=== PATIENT | female | born 1950 | race Caucasian/White ===

== ENCOUNTER 2020-01-04 04:14 | Observation (INO) | payer MEDICARE, OTHER ==
[2020-01-04 04:59] LABS: Absolute Neutrophil Ct (ANC) 3.42 (1.4-6.9); BASOPHIL % 0.4 % (0.0-0.4); Basophil (Absolute #) 0.03 (0-0.4); Eosinophil % 4.1 % (0.00-5.0); Eosinophil (Absolute #) 0.31 (0-0.5); Hematocrit 40.2 % (35-47); Hemoglobin 13.1 gm/dl (12.0-16.0); Lymphocyte (Absolute #) 3.26 (1.0-4.6); Lymphocytes % 43.5 % (24.0-44.0); Mean Corpuscular Hgb Concent. 32.6 g/dl (32-36); Mean Platelet Volume 9.8 fl (7.5-11.0); Monocyte (Absolute #) 0.48 (0.0-1.3); Monocytes % 6.4 % (0.0-12.0); Neutrophil % 45.6 % (36.0-66.0); Platelet Count 221 K/mm3 (150-450); Red Blood Count 4.23 M/mm3 (4.1-5.4); Red Cell Distribution Width 12.7 % (11.5-14.0); White Blood Count 7.5 K/mm3 (4.0-10.5)
[2020-01-04 05:12] LABS: ALBUMIN 4.3 g/dL (3.5-5.0); ALKALINE PHOSPHATASE 111 U/L (38-126); ANION GAP 12.5 MEQ/L (5-15); BLOOD UREA NITROGEN 14 mg/dL (7-17); CHLORIDE 108 mmol/L (98-107); Calcium 9.8 mg/dL (8.4-10.2); Carbon Dioxide 24 mmol/L (22-30); Creatinine 1 0.73 mg/dL (0.52-1.04); Glucose 103 mg/dL (74-106); Potassium 3.2 mmol/L (3.5-5.1); SGOT/AST 29 U/L (14-36); SGPT/ALT 20 U/L (0-35); SODIUM 142 mmol/L (137-145); Total Protein 8.1 g/dL (6.3-8.2)
--- NOTE | 2020-01-04 05:33 | ERPHSYRPT ---
- History of Present Illness Time Seen by Provider: 01/04/20 04:30 Source: patient Exam Limitations: no limitations Patient Subjective Stated Complaint: pt got up to go to bathroom and felt dizzy. pt c/o b/p was 99/71 at home, HR 106 and heart felt "fluttery". Triage Nursing Assessment: pt got up to go to bathroom and got dizzy. Pt went back to bed and had spouse check her b/p and HR, which were 99/71 and 106. Pt felt heart was "fluttery". Pt had syncopal episode 2 weeks ago after getting dizzy. Lungs clear, heart tones reg, abd soft with active bs x4 quad. Pt denies any chest pain. Physician History: Patient is a 69-year-old female presents to our ED with complaints of intermittent dizziness that has been going on for approximately 2 weeks. Patient states she had a syncopal episode about 2 weeks ago. Patient followed up with her primary care doctor. Primary care doctor discontinued Lasix. Patient has been off of her Lasix. However today she went to the bathroom and began feeling dizzy. Patient spouse checked her blood pressure and found that her blood pressure was 99/71. Heart rate was 106. Patient described heart flutter. Patient became concerned and presented to our ED. Dizziness is not associated with head motion or head movement. Timing/Duration: today Severity: moderate Character of Deficits: none Baseline/Normal Cognition: alert oriented x 3 Current Cognition: alert oriented x 3, poor alertness Associated Symptoms: No confusion, No weakness, No numbness/tingling in legs/ feet, No ringing in ears, No slurred speech Allergies/Adverse Reactions: No Known Drug Allergies Allergy (Verified 01/04/20 04:32) Home Medications: Verapamil HCl [Verapamil ER] 120 mg PO DAILY 01/04/20 [History] Hx Tetanus, Diphtheria Vaccination/Date Given: No Hx Influenza Vaccination/Date Given: No Hx Pneumococcal Vaccination/Date Given: Yes Immunizations Up to Date: No - Review of Systems Constitutional: No Fever, No Chills Eyes: No Symptoms Ears, Nose, & Throat: No Symptoms Respiratory: No Symptoms, No Cough, No Dyspnea Cardiac: No Symptoms, No Chest Pain, No Edema, No Syncope Abdominal/Gastrointestinal: No Symptoms, No Abdominal Pain, No Nausea, No Vomiting, No Diarrhea Genitourinary Symptoms: No Symptoms, No Dysuria Musculoskeletal: No Symptoms, No Back Pain, No Neck Pain Skin: No Rash Neurological: No Symptoms, No Dizziness, No Focal Weakness, No Sensory Changes Psychological: No Symptoms Endocrine: No Symptoms Hematologic/Lymphatic: No Symptoms Immunological/Allergic: No Symptoms All Other Systems: Reviewed and Negative - Past Medical History Pertinent Past Medical History: Yes Neurological History: No Pertinent History ENT History: No Pertinent History Cardiac History: Hypertension Respiratory History: No Pertinent History Endocrine Medical History: No Pertinent History Musculoskeletal History: Arthritis, Other GI Medical History: No Pertinent History History: No Pertinent History Psycho-Social History: No Pertinent History Female Reproductive Disorders: No Pertinent History Other Medical History: DISC IN BACK PROBLEMS - Past Surgical History Past Surgical History: Yes Neuro Surgical History: No Pertinent History Cardiac: No Pertinent History Respiratory: No Pertinent History Gastrointestinal: No Pertinent History Genitourinary: No Pertinent History Musculoskeletal: Orthopedic Surgery Female Surgical History: No Pertinent History Other Surgical History: partial rt hip replacement. plate in lt wrist - Social History Smoking Status: Never smoker Exposure to second hand smoke: No Drug Use: none Patient Lives Alone: No - Female History Hx Now: No - Nursing Vital Signs Nursing Vital Signs: Initial Vital Signs Temperature 98.0 F 01/04/20 04:19 Pulse Rate 66 01/04/20 04:19 Respiratory Rate 20 01/04/20 04:19 Blood Pressure 174/96 01/04/20 04:19 O2 Sat by Pulse Oximetry 97 01/04/20 04:19 Pain Scale Pain Intensity 0 - Chuy Coma Scale Best Eye Response (Chuy): (4) open spontaneously Best Verbal Response (Chuy): (5) oriented Best Motor Response (Chuy): (6) obeys commands [place] Total: 15 - Physical Exam General Appearance: no apparent distress, alert Eye Exam: bilateral eye: normal inspection, PERRL, EOMI Ears, Nose, Throat Exam: normal ENT inspection, moist mucous membranes Neck Exam: normal inspection, non-tender, supple Respiratory: normal breath sounds, lungs clear, airway intact, No respiratory distress Cardiovascular: regular rate/rhythm, No edema Gastrointestinal: soft, No tenderness, No distention Back Exam: normal inspection Extremity Exam: normal inspection, No pedal edema Mental Status: alert, 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 T wave inversion at 3 and aVF.) - Radiology Exams Chest X-ray Interpretation: Teleradiologist Report (Nonspecific bibasilar streaky opacities are present likely represent subsegmental atelectasis however superimposed airspace consolidation cannot be completely excluded. No definitive acute findings.) - CT Exams Head CT Interpretation: Tele-radiologist Report (No acute intracranial pathology observed.) Ordered Tests: Active Orders 24 hr Category Date Time Status Rigger Supervisor STAT Care 01/04/20 04:38 Active EKG-ER Only STAT Care 01/04/20 04:37 Active IV Insertion STAT Care 01/04/20 04:37 Active Pulse Oximetry (ED) STAT Care 01/04/20 04:37 Active CHEST 1 VIEW (PORTABLE) Stat Exams 01/04/20 04:38 Taken HEAD WITHOUT CONTRAST [CT] Stat Exams 01/04/20 04:39 Taken CBC W DIFF Stat Lab 01/04/20 04:50 Completed CMP Stat Lab 01/04/20 04:50 Completed TROPONIN Q3H Lab 01/04/20 04:50 Received TROPONIN Q3H Lab 01/04/20 07:45 Ordered TROPONIN Q3H Lab 01/04/20 10:45 Ordered TROPONIN Q3H Lab 01/04/20 13:45 Ordered TROPONIN Q3H Lab 01/04/20 16:45 Ordered Lab/Rad Data: Laboratory Result Diagrams 01/04/20 04:50 01/04/20 04:50 Laboratory Results 01/04/20 01/04/20 Range/Units 04:50 04:50 WBC 7.5 (4.0-10.5) K/mm3 RBC 4.23 (4.1-5.4) M/mm3 Hgb 13.1 (12.0-16.0) gm/dl Hct 40.2 (35-47) % MCV 95.0 (78-100) fl MCH 31.0 (26-32) pg MCHC 32.6 (32-36) g/dl RDW 12.7 (11.5-14.0) % Plt Count 221 (150-450) K/mm3 MPV 9.8 (7.5-11.0) fl Gran % 45.6 (36.0-66.0) % Eos # (Auto) 0.31 (0-0.5) Absolute Lymphs (auto) 3.26 (1.0-4.6) Absolute Monos (auto) 0.48 (0.0-1.3) Lymphocytes % 43.5 (24.0-44.0) % Monocytes % 6.4 (0.0-12.0) % Eosinophils % 4.1 (0.00-5.0) % Basophils % 0.4 (0.0-0.4) % Absolute Granulocytes 3.42 (1.4-6.9) Basophils # 0.03 (0-0.4) Sodium 142 (137-145) mmol/L Potassium 3.2 L (3.5-5.1) mmol/L Chloride 108 H (98-107) mmol/L Carbon Dioxide 24 (22-30) mmol/L Anion Gap 12.5 (5-15) MEQ/L BUN 14 (7-17) mg/dL Creatinine 0.73 (0.52-1.04) mg/dL Estimated GFR > 60.0 ML/MIN Glucose 103 (74-106) mg/dL Calcium 9.8 (8.4-10.2) mg/dL Total Bilirubin 0.60 (0.2-1.3) mg/dL AST 29 (14-36) U/L ALT 20 (0-35) U/L Alkaline Phosphatase 111 (38-126) U/L Serum Total Protein 8.1 (6.3-8.2) g/dL Albumin 4.3 (3.5-5.0) g/dL - Progress Progress: improved Progress Note: 01/04/20 06:09 Patient reassessed. She feels well. Work-up reveals hypokalemia. Potassium replaced. EKG shows ST segment depression in V5 V6. 3 and aVF show T wave inversions. Patient has had 2 syncopal or near syncopal episodes in the past 2 weeks. Given her age and ongoing symptomology coupled with abnormal EKG we will admit patient for further evaluation and treatment. Plan of care discussed with patient. She agrees to admission to [facility] for further evaluation and treatment. Case discussed with Dr. Adam who accepts admission to observation. 01/04/20 06:13 Discussed with : Melissa Will see patient in: hospital (observation) Counseled pt/family regarding: lab results, diagnosis, rad results - Departure Departure Disposition: In-patient Admission Clinical Impression: Dizziness, Syncope and collapse, Hypokalemia, Abnormal EKG Condition: Stable Critical Care Time: No Referrals: GLADYS ADAM MD [Primary Care Provider] - Additional Instructions: Admission Note: The patient, MAICOL DICKSON, 69 y/o, F admitted by , was given written information regarding hospital policies, unit procedures and contact persons. Patient was admitted after showing signs of DIZZY W /abnormal EKG
[2020-01-04] MEDS ORDERED: Klor Con 10 MEQ PO ONE ×2 (05:52→05:59)
--- NOTE | 2020-01-04 09:20 | XRAY ---
Indication: Dizziness and congestion. Comparison: April 04, 2013. Portable chest remains negative for focal infiltrate, consolidation, or large effusion. Heart is now borderline enlarged. Vascularity normal. Bony thorax intact. Impression: Borderline cardiomegaly. Negative for acute pneumonic process or CHF. Comment: Preliminary interpretation was made by C. No critical discrepancy.
--- NOTE | 2020-01-04 09:22 | XRAY ---
Indication: Dizziness. Multiple contiguous axial images obtained through the head without contrast. Comparison: None Normal appearing brain parenchyma, ventricles, and bony calvarium. Tiny sphenoid sinus fluid leveling and minimal right maxillary sinus mucosal thickening. Remaining visualized paranasal sinuses and mastoid air cells are clear. Impression: Minimal paranasal sinus disease. Remaining CT head without contrast exam is normal. Comment: Preliminary interpretation was made by [facility]. No critical discrepancy.
--- NOTE | 2020-01-04 12:30 | PCM.HP ---
History of Present Illness - Chief Complaint Chief Complaint: dizziness off and on for 2 weeks History of Present Illness: Patient is a 69-year-old female presents to our ED with complaints of intermittent dizziness that has been going on for approximately 2 weeks. Patient states she had a syncopal episode about 2 weeks ago. Patient followed up with her primary care doctor. Primary care doctor discontinued Lasix. Patient has been off of her Lasix. However today she went to the bathroom and began feeling dizzy. Patient spouse checked her blood pressure and found that her blood pressure was 99/71. Heart rate was 106. Patient described heart flutter. Patient became concerned and presented to our ED. Dizziness is not associated with head motion or head movement. - Review of Systems Constitutional: No Fever, No Chills Eyes: No Symptoms Ears, Nose, & Throat: No Symptoms Respiratory: No Cough, No Short Of Breath Cardiac: No Chest Pain, No Edema, No Syncope Abdominal/Gastrointestinal: No Abdominal Pain, No Nausea, No Vomiting, No Diarrhea Genitourinary Symptoms: No Dysuria Musculoskeletal: No Back Pain, No Neck Pain Skin: No Rash Neurological: No Dizziness, No Focal Weakness, No Sensory Changes Psychological: No Symptoms Endocrine: No Symptoms Hematologic/Lymphatic: No Symptoms Immunological/Allergic: No Symptoms Medications & Allergies Home Medications: Home Medication List Aspirin EC 81 mg [Ecotrin 81 mg] 81 mg PO DAILY 01/04/20 [History Confirmed 01/04/20] Ferrous Sulfate 325 mg PO DAILY 01/04/20 [History Confirmed 01/04/20] Vits W-Ca,Fe,FA(<1Mg) [] 1 tab PO DAILY 01/04/20 [History Confirmed 01/04/20] Verapamil HCl [Verapamil ER] 120 mg PO DAILY 01/04/20 [History Confirmed ] Allergies/Adverse Reactions: Allergies Allergy/AdvReac Type Severity Reaction Status Date / Time No Known Drug Allergies Allergy Verified 01/04/20 04:32 - Past Medical History Past Medical History: Yes Neurological History: No Pertinent History ENT History: No Pertinent History Cardiac History: Hypertension Respiratory History: No Pertinent History Endocrine Medical History: No Pertinent History Musculoskelatal History: Arthritis, Other GI Medical History: No Pertinent History History: No Pertinent History Pyscho-Social History: No Pertinent History Reproductive Disorders: No Pertinent History Comment: DISC IN BACK PROBLEMS - Female History Are you now?: No - Past Surgical History Past Surgical History: Yes Neuro Surgical History: No Pertinent History Cardiac History: No Pertinent History Respiratory Surgery: No Pertinent History GI Surgical History: No Pertinent History Genitourinary Surgical Hx: No Pertinent History Musculskeletal Surgical Hx: Orthopedic Surgery Female Surgical History: No Pertinent History Other Surgical History: partial rt hip replacement. plate in lt wrist - Social History Smoking Status: Never smoker Exposure to second hand smoke: No Alcohol: None Drug Use: none - Physical Exam Vital Signs: Vital Signs - 24 hr Temp Pulse Resp BP Pulse Ox 01/04/20 11:33 98.8 F 67 18 128/56 96 01/04/20 08:07 97.8 F 71 176/86 98 01/04/20 06:41 98 01/04/20 06:23 97.8 F 71 20 176/86 96 01/04/20 06:14 100 01/04/20 05:58 73 10 L 152/85 95 01/04/20 05:05 83 13 152/85 94 L 01/04/20 04:40 100 01/04/20 04:19 98.0 F 66 20 174/96 97 General Appearance: no apparent distress, alert Neurologic Exam: alert, oriented x 3, cooperative, normal mood/affect, nml cerebellar function, nml station & gait, sensation nml, No motor deficits Eye Exam: PERRL/EOMI, eyes nml inspection Ears, Nose, Throat Exam: normal ENT inspection, TMs normal, pharynx normal, moist mucous membranes Neck Exam: normal inspection, non-tender, supple, full range of motion Respiratory Exam: normal breath sounds, lungs clear, No respiratory distress Cardiovascular Exam: regular rate/rhythm, normal heart sounds, normal peripheral pulses Gastrointestinal/Abdomen Exam: soft, normal bowel sounds, No tenderness, No mass Back Exam: normal inspection, normal range of motion, No CVA tenderness, No vertebral tenderness Extremity Exam: normal inspection, normal range of motion, pelvis stable Skin Exam: normal color, warm, dry, No rash Lymphatic Exam: No adenopathy Results - Labs Lab/Micro Results: Lab Results-Last 24 Hours 01/04/20 01/04/20 01/04/20 Range/Units 04:50 04:50 04:50 WBC 7.5 (4.0-10.5) K/mm3 RBC 4.23 (4.1-5.4) M/mm3 Hgb 13.1 (12.0-16.0) gm/dl Hct 40.2 (35-47) % MCV 95.0 (78-100) fl MCH 31.0 (26-32) pg MCHC 32.6 (32-36) g/dl RDW 12.7 (11.5-14.0) % Plt Count 221 (150-450) K/mm3 MPV 9.8 (7.5-11.0) fl Gran % 45.6 (36.0-66.0) % Eos # (Auto) 0.31 (0-0.5) Absolute Lymphs (auto) 3.26 (1.0-4.6) Absolute Monos (auto) 0.48 (0.0-1.3) Lymphocytes % 43.5 (24.0-44.0) % Monocytes % 6.4 (0.0-12.0) % Eosinophils % 4.1 (0.00-5.0) % Basophils % 0.4 (0.0-0.4) % Absolute Granulocytes 3.42 (1.4-6.9) Basophils # 0.03 (0-0.4) Sodium 142 (137-145) mmol/L Potassium 3.2 L (3.5-5.1) mmol/L Chloride 108 H (98-107) mmol/L Carbon Dioxide 24 (22-30) mmol/L Anion Gap 12.5 (5-15) MEQ/L BUN 14 (7-17) mg/dL Creatinine 0.73 (0.52-1.04) mg/dL Estimated GFR > 60.0 ML/MIN Glucose 103 (74-106) mg/dL Calcium 9.8 (8.4-10.2) mg/dL Total Bilirubin 0.60 (0.2-1.3) mg/dL AST 29 (14-36) U/L ALT 20 (0-35) U/L Alkaline Phosphatase 111 (38-126) U/L Troponin I < 0.012 (0.000-0.034) ng/mL Serum Total Protein 8.1 (6.3-8.2) g/dL Albumin 4.3 (3.5-5.0) g/dL 01/04/20 01/04/20 Range/Units 08:05 11:00 WBC (4.0-10.5) K/mm3 RBC (4.1-5.4) M/mm3 Hgb (12.0-16.0) gm/dl Hct (35-47) % MCV (78-100) fl MCH (26-32) pg MCHC (32-36) g/dl RDW (11.5-14.0) % Plt Count (150-450) K/mm3 MPV (7.5-11.0) fl Gran % (36.0-66.0) % Eos # (Auto) (0-0.5) Absolute Lymphs (auto) (1.0-4.6) Absolute Monos (auto) (0.0-1.3) Lymphocytes % (24.0-44.0) % Monocytes % (0.0-12.0) % Eosinophils % (0.00-5.0) % Basophils % (0.0-0.4) % Absolute Granulocytes (1.4-6.9) Basophils # (0-0.4) Sodium (137-145) mmol/L Potassium (3.5-5.1) mmol/L Chloride (98-107) mmol/L Carbon Dioxide (22-30) mmol/L Anion Gap (5-15) MEQ/L BUN (7-17) mg/dL Creatinine (0.52-1.04) mg/dL Estimated GFR ML/MIN Glucose (74-106) mg/dL Calcium (8.4-10.2) mg/dL Total Bilirubin (0.2-1.3) mg/dL AST (14-36) U/L ALT (0-35) U/L Alkaline Phosphatase (38-126) U/L Troponin I < 0.012 < 0.012 (0.000-0.034) ng/mL Serum Total Protein (6.3-8.2) g/dL Albumin (3.5-5.0) g/dL - Radiology Impressions Radiology Exams & Impressions: Radiology Procedures Category Date Time Status CHEST 1 VIEW (PORTABLE) Stat Exams 01/04/20 04:38 Completed HEAD WITHOUT CONTRAST [CT] Stat Exams 01/04/20 04:39 Completed Assessment/Plan (1) Syncope and collapse Current Visit: Yes Status: Acute Assessment & Plan: Last Vital Signs Temp 98.8 F 01/04/20 11:33 Pulse 67 01/04/20 11:33 Resp 18 01/04/20 11:33 BP 128/56 01/04/20 11:33 Pulse Ox 96 01/04/20 11:33 Allergies No Known Drug Allergies Allergy (Verified 01/04/20 04:32) Intake & Output 01/04/20 01/05/20 11:59 11:59 Intake Total 720 480 Balance 720 480 Weight 84.096 kg Lab Tests 01/04/20 01/04/20 01/04/20 04:50 04:50 04:50 WBC 7.5 RBC 4.23 Hgb 13.1 Hct 40.2 MCV 95.0 MCH 31.0 MCHC 32.6 RDW 12.7 Plt Count 221 MPV 9.8 Gran % 45.6 Eos # (Auto) 0.31 Absolute Lymphs (auto) 3.26 Absolute Monos (auto) 0.48 Lymphocytes % 43.5 Monocytes % 6.4 Eosinophils % 4.1 Basophils % 0.4 Absolute Granulocytes 3.42 Basophils # 0.03 Sodium 142 Potassium 3.2 L Chloride 108 H Carbon Dioxide 24 Anion Gap 12.5 BUN 14 Creatinine 0.73 Estimated GFR > 60.0 Glucose 103 Calcium 9.8 Total Bilirubin 0.60 AST 29 ALT 20 Alkaline Phosphatase 111 Troponin I < 0.012 Serum Total Protein 8.1 Albumin 4.3 01/04/20 01/04/20 08:05 11:00 WBC RBC Hgb Hct MCV MCH MCHC RDW Plt Count MPV Gran % Eos # (Auto) Absolute Lymphs (auto) Absolute Monos (auto) Lymphocytes % Monocytes % Eosinophils % Basophils % Absolute Granulocytes Basophils # Sodium Potassium Chloride Carbon Dioxide Anion Gap BUN Creatinine Estimated GFR Glucose Calcium Total Bilirubin AST ALT Alkaline Phosphatase Troponin I < 0.012 < 0.012 Serum Total Protein Albumin Code(s): R55 - SYNCOPE AND COLLAPSE (2) Dizziness Current Visit: Yes Status: Acute Code(s): R42 - DIZZINESS AND GIDDINESS (3) Abnormal EKG Current Visit: Yes Status: Acute Code(s): R94.31 - ABNORMAL ELECTROCARDIOGRAM [ECG] [EKG]
[2020-01-04] MEDS ORDERED: ISOPTIN S.R. 240 MG PO SCH (14:00)
[2020-01-04] MEDS ORDERED: THERAGRAN MULTIVITAMIN PO SCH (14:00)
[2020-01-04] MEDS ORDERED: ECOTRIN 81 MG PO SCH (14:00)
[2020-01-04] MEDS ORDERED: FEOSOL 325 MG PO SCH (14:00)
[2020-01-04 16:39] VITALS: BP 139/66; PULSE 70; O2SAT 97
--- NOTE | 2020-01-05 07:54 | CONS ---
CONSULT DATE: 01/04/2020 BRIEF HISTORY: This is a 69 year-old female who was seen for dizzy spells and syncope. About two weeks ago when she was on her way to the bathroom, she felt dizzy and passed out. This only lasted a few seconds and she regained consciousness she was cognizant of her environment. There was no significant injury sustained. She was doing well until yesterday when she got up for the bathroom. She felt dizzy and had to go back to her bed. Her blood pressure was in the upper 90's systolic with a heart rate of 106. She felt her heart fluttering. PAST MEDICAL HISTORY: The patient has a history of mitral valve prolapse. She recently lost her grandson from a motor vehicle accident. She denies any chest pains. No history of paroxysmal nocturnal dyspnea. No orthopnea. No peripheral edema. She has had some intermittent palpitations. She has never had myocardial infarction or heart failure. CARDIAC RISK FACTORS: Negative for diabetes. Positive for hypertension. She does not smoke. No known hyperlipidemia. FAMILY HISTORY: Negative for premature coronary artery disease. Mother was diagnosed to have some problem with arrhythmia while her father had congestive heart failure. CURRENT MEDICATIONS: Aspirin, ferrous sulfate, Verapamil, multivitamins. REVIEW OF SYSTEMS: CYLINDER GRINDER: There is no history of stroke, no seizures. She has intermittent headaches. No visual disturbance. RESPIRATORY: No chronic cough. No hemoptysis. No history of pneumonia. GI: Negative history for heartburn, reflux. No nausea or vomiting. She is chronically constipated. : Negative for dysuria or hematuria. No flank pains. PERIPHERAL VASCULAR: No history of DVT or claudication. 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 CONSTITUTIONAL: No significant weight gain or weight loss. No febrile episodes. No generalized weakness. HEMATOLOGY: She has chronic anemia which appears to be secondary to iron deficiency. ENDOCRINE: No thyroid disorder. PAST SURGICAL HISTORY: Right hip surgery. Right wrist surgery. SOCIAL HISTORY: She is . 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 She has no significant alcohol intake. PHYSICAL EXAMINATION: Heart rate is about 70, respirations about 14, blood pressure 139/66. GENERAL: The patient is an elderly woman who is alert, oriented who is not in any form of distress, conversant with normal mental status. HEENT: Nonicteric sclera. Pinkish conjunctivae. Pupils are equal. NECK: No significant JVD. No carotid bruit. Thyroid is not enlarged. CHEST: The breath sounds are clear bilaterally. There are no adventitious sounds. CARDIAC: Heart tones are normal. The rhythm is regular. There is no audible gallop or rub. There is a soft apical systolic murmur. ABDOMEN: Soft with normal bowel sounds. No bruit. No tenderness or guarding. EXTREMITIES: No significant edema. Palpable distal pulses. LAB DATA AND DIAGNOSTIC TESTS: The EKG showed sinus rhythm with nonspecific ST-T displacement. The troponin I is less than 0.012. CBC showed hemoglobin 13.3, PLT 221,000. CT of the head was unremarkable. Chest x-ray was also unremarkable. IMPRESSION: In essence the patient has history of syncope and also dizzy spells with a background of palpitations a Holter monitor would be warranted. In addition, an echocardiogram will be obtained to assess the left ventricular systolic function. Will also perform a screening calcium score as she has some cardiac risk factors. Meanwhile continue with the current medical regimen. I will follow up with you.
[2020-01-05] MEDS ORDERED: NON-FORMULARY ITEM (Prenatal Vits W-Ca,Fe,Fa(<1mg) [Prenatal] 1 TAB) PO SCH (10:00)
[2020-01-05] MEDS ORDERED: NON-FORMULARY ITEM (Verapamil Hcl [Verapamil Er] 120 MG) PO SCH (10:00)
== END 2020-01-04 17:50 | disposition home or self-care (01) ==
LOC: ED 04:14 → MED SURG 06:21
PROVIDERS: ADMIT General Practice; ATTEND General Practice
DX: R55 Syncope and collapse (principal); R42 Dizziness and giddiness; I10 Essential (primary) hypertension; R94.31 Abnormal electrocardiogram [ECG] [EKG]; Z79.899 Other long term (current) drug therapy
CPT/HCPCS: 36000; 36415; 70450; 71045; 80053; 84484; 85025; 93005; 93041; 94760; 94762; 99285; A9270-GY; G0378

== ENCOUNTER 2020-11-01 16:45 | Inpatient (IN) | payer MEDICARE, OTHER ==
--- NOTE | 2020-11-01 17:47 | ERPHSYRPT ---
- History of Present Illness Patient Subjective Stated Complaint: Patient presents to ER as a Covid- Positive patient. She states she was tested on 10/29/20 and learned on 11/01/20 she was positive. Her chief compliant is bodyaches and low-graade fever. States she has been unable to eat due to no apetite. SHe does report a haeadache and diarrhea. Triage Nursing Assessment: Patient pink, warm, dry. Lung sounds clear and equal bilaterally. Patient alert and oriented x3. Mouth moist. heart tones wnl. Timing/Duration: day(s), worse Activities at Onset: none Quality: cramping, throbbing Abdominal Pain Onset Location: generalized abdomen Pain Radiation: no radiation Severity of Pain-Max: moderate Severity of Pain-Current: moderate Modifying Factors: Improves With: nothing Associated Symptoms: back, diarrhea, nausea, vomiting Previous symptoms: no prior history Hx Tetanus, Diphtheria Vaccination/Date Given: No Hx Influenza Vaccination/Date Given: No Hx Pneumococcal Vaccination/Date Given: No Immunizations Up to Date: Yes <CECY VALLES - Last Filed: 11/01/20 19:23> <GLADYS ADAM - Last Filed: 11/01/20 20:43> - History of Present Illness Time Seen by Provider: 11/01/20 17:45 Physician History: Is a 70-year-old female who was diagnosed with Covid who presents with gen eralized body aches weakness and generally not feeling well. Has had only a low-grade fever she denies much in the way of shortness of breath or cough. She does have some nausea vomiting and diarrhea (CECY VALLES) Allergies/Adverse Reactions: No Known Drug Allergies Allergy (Verified 01/04/20 04:32) Home Medications: Aspirin EC 81 mg [Ecotrin 81 mg] 81 mg PO DAILY 01/04/20 [History] Ferrous Sulfate 325 mg PO DAILY 01/04/20 [History] Vits W-Ca,Fe,FA(<1Mg) [] 1 tab PO DAILY 01/04/20 [History] Verapamil HCl [Verapamil ER] 120 mg PO DAILY 01/04/20 [History] Travel Risk - International Travel Have you traveled outside of the country in past 3 weeks: No - Coronavirus Screening Are you exhibiting any of the following symptoms?: Yes Symptoms: Fever, Vomiting/Diarrhea, Headaches/Body Aches/Fatigue Close contact with a COVID-19 positive Pt in past 14-21 Days: No <CECY VALLES - Last Filed: 11/01/20 19:23> - Past Medical History Pertinent Past Medical History: Yes Neurological History: No Pertinent History ENT History: No Pertinent History Cardiac History: Other Respiratory History: No Pertinent History Endocrine Medical History: No Pertinent History Musculoskeletal History: Osteoarthritis GI Medical History: No Pertinent History History: No Pertinent History Psycho-Social History: No Pertinent History Female Reproductive Disorders: No Pertinent History Other Medical History: DISC IN BACK PROBLEMS - Past Surgical History Past Surgical History: Yes Neuro Surgical History: No Pertinent History Cardiac: No Pertinent History Respiratory: No Pertinent History Gastrointestinal: No Pertinent History Genitourinary: No Pertinent History Musculoskeletal: Joint Replacement Female Surgical History: No Pertinent History Other Surgical History: wrist surgery - Social History Smoking Status: Never smoker Exposure to second hand smoke: No Drug Use: none Patient Lives Alone: No - Female History Hx Now: No <CECY VALLES - Last Filed: 11/01/20 19:23> - Physical Exam General Appearance: no apparent distress, alert Eye Exam: PERRL/EOMI, eyes nml inspection Ears, Nose, Throat Exam: normal ENT inspection, pharynx normal, moist mucous membranes Neck Exam: normal inspection, non-tender, supple, full range of motion Respiratory Exam: normal breath sounds, lungs clear, No respiratory distress Cardiovascular Exam: regular rate/rhythm, normal heart sounds Gastrointestinal/Abdomen Exam: soft, No tenderness, No mass Back Exam: normal inspection, normal range of motion, No CVA tenderness, No vertebral tenderness Extremity Exam: normal inspection, normal range of motion, pelvis stable Neurologic Exam: alert, oriented x 3, cooperative, normal mood/affect, nml cerebellar function, sensation nml, No motor deficits Skin Exam: normal color, warm, dry SpO2: 96 <CECY VALLES - Last Filed: 11/01/20 19:23> - Nursing Vital Signs Nursing Vital Signs: Initial Vital Signs Temperature 100.4 F 11/01/20 17:20 Pulse Rate 82 11/01/20 17:20 Respiratory Rate 18 11/01/20 17:20 Blood Pressure 164/79 11/01/20 17:20 O2 Sat by Pulse Oximetry 96 11/01/20 17:20 Pain Scale Pain Intensity 0 - Course Nursing assessment & vital signs reviewed: Yes <REENACECY - Last Filed: 11/01/20 19:23> - Radiology Exams Chest X-ray Interpretation: Reviewed by me <GLADYS ADAM - Last Filed: 11/01/20 20:43> Ordered Tests: Active Orders 24 hr Category Date Time Status Room Maid STAT Care 11/01/20 17:39 Active EKG-ER Only STAT Care 11/01/20 17:39 Active Isolation, Initiate & Maintain STAT Care 11/01/20 19:34 Active Pulse Oximetry (ED) STAT Care 11/01/20 17:39 Active Saline Lock STAT Care 11/01/20 17:39 Active CHEST 1 VIEW (PORTABLE) Stat Exams 11/01/20 19:32 Taken CBC W DIFF Stat Lab 11/01/20 19:50 Completed CMP Stat Lab 11/01/20 19:50 Completed D-DIMER QUANTITATIVE Stat Lab 11/01/20 19:50 Completed Manual Differential NC Stat Lab 11/01/20 19:50 Completed TROPONIN Stat Lab 11/01/20 19:50 Completed Transfer Order Routine Transfer 11/01/20 Ordered Medication Summary Discontinued Medications Generic Name Dose Route Start Last Admin Trade Name Freq PRN Reason Stop Dose Admin Acetaminophen 1,000 mg 11/01/20 19:15 11/01/20 19:18 Tylenol Extra Strength 500 Mg PO 11/01/20 19:16 1,000 mg Q4H PRN STA Administration Acetaminophen Confirm 11/01/20 19:17 Tylenol Extra Strength 500 Mg Administered 11/01/20 19:18 Dose 1,000 mg .ROUTE .STK-MED ONE Sodium Chloride 1,000 mls @ 999 mls/hr 11/01/20 19:13 11/01/20 19:18 Sodium Chloride 0.9% 1000 Ml IV 11/01/20 20:13 999 mls/hr .Q1H1M STA Administration Sodium Chloride Confirm 11/01/20 19:17 Sodium Chloride 0.9% 1000 Ml Administered 11/01/20 19:18 Dose 1,000 mls @ ud .ROUTE .STK-MED ONE Lab/Rad Data: Laboratory Result Diagrams 11/01/20 19:50 11/01/20 19:50 Laboratory Results 11/01/20 11/01/20 11/01/20 Range/Units 19:50 19:50 19:50 WBC 5.9 (4.0-10.5) K/mm3 RBC 3.77 L (4.1-5.4) M/mm3 Hgb 11.6 L (12.0-16.0) gm/dl Hct 35.5 (35-47) % MCV 94.2 (78-100) fl MCH 30.8 (26-32) pg MCHC 32.7 (32-36) g/dl RDW 12.4 (11.5-14.0) % Plt Count 161 (150-450) K/mm3 MPV 10.5 (7.5-11.0) fl D-Dimer 971 H* (215-500) ng/mL Sodium 130 L (137-145) mmol/L Potassium 3.6 (3.5-5.1) mmol/L Chloride 99 (98-107) mmol/L Carbon Dioxide 23 (22-30) mmol/L Anion Gap 11.3 (5-15) MEQ/L BUN 12 (7-17) mg/dL Creatinine 0.69 (0.52-1.04) mg/dL Estimated GFR > 60.0 ML/MIN Glucose 100 (74-106) mg/dL Calcium 8.4 (8.4-10.2) mg/dL Total Bilirubin 0.50 (0.2-1.3) mg/dL AST 36 (14-36) U/L ALT 20 (0-35) U/L Alkaline Phosphatase 80 (38-126) U/L Troponin I < 0.012 (0.000-0.034) ng/mL Serum Total Protein 6.8 (6.3-8.2) g/dL Albumin 3.5 (3.5-5.0) g/dL Slides for Path Review Cancelled - Progress Progress: unchanged <CECY VALLES - Last Filed: 11/01/20 19:23> - Progress Counseled pt/family regarding: lab results, diagnosis, need for follow-up, rad results <GLADYS ADAM - Last Filed: 11/01/20 20:43> <CECY VALLES - Last Filed: 11/01/20 19:23> - Departure Departure Disposition: Observation Critical Care Time: Yes Critical Care Time(excluding separately billable procedures): Critical 30-74 mins <GLADYS ADAM - Last Filed: 11/01/20 20:43> - Departure Clinical Impression: Pneumonia due to 2019 novel coronavirus Condition: Fair Referrals: GLADYS ADAM MD [Primary Care Provider] - Instructions: Pneumonia, Adult (DC)
[2020-11-01] MEDS ORDERED: Sodium Chloride 0.9% 1000 ML 1,000 ML IV STA (19:13)
[2020-11-01] MEDS ORDERED: TYLENOL EXTRA STRENGTH 500 MG PO STA (19:15)
[2020-11-01] MEDS ORDERED: TYLENOL EXTRA STRENGTH 500 MG ONE (19:17)
[2020-11-01] MEDS ORDERED: Sodium Chloride 0.9% 1000 ML 1,000 ML ONE (19:17)
[2020-11-01 20:23] LABS: ALBUMIN 3.5 g/dL (3.5-5.0); ALKALINE PHOSPHATASE 80 U/L (38-126); ANION GAP 11.3 MEQ/L (5-15); BLOOD UREA NITROGEN 12 mg/dL (7-17); CHLORIDE 99 mmol/L (98-107); Calcium 8.4 mg/dL (8.4-10.2); Carbon Dioxide 23 mmol/L (22-30); Creatinine 1 0.69 mg/dL (0.52-1.04); EST GLOMERULAR FILTRATION RATE > 60.0 ML/MIN; Glucose 100 mg/dL (74-106); Hematocrit 35.5 % (35-47); Hemoglobin 11.6 gm/dl (12.0-16.0); Mean Cell Volume 94.2 fl (78-100); Mean Corpuscular Hemoglobin 30.8 pg (26-32); Mean Corpuscular Hgb Concent. 32.7 g/dl (32-36); Mean Platelet Volume 10.5 fl (7.5-11.0); Platelet Count 161 K/mm3 (150-450); Potassium 3.6 mmol/L (3.5-5.1); Red Blood Count 3.77 M/mm3 (4.1-5.4); Red Cell Distribution Width 12.4 % (11.5-14.0); SGOT/AST 36 U/L (14-36); SGPT/ALT 20 U/L (0-35); SODIUM 130 mmol/L (137-145); TROPONIN < 0.012 ng/mL (0.000-0.034); Total Protein 6.8 g/dL (6.3-8.2); White Blood Count 5.9 K/mm3 (4.0-10.5)
[2020-11-01 21:01] LABS: BAND 5 % (0.0-2.0); Lymphocytes 8 % (24-44); Metamyelocyte 1 %; Monocyte 2 % (0.0-12.0); Neutrophils 84 % (36.0-66.0); Total Cells Counted 100
[2020-11-01 21:02] LABS: Platelet Estimate NORMAL (NORMAL)
[2020-11-01] MEDS ORDERED: MORPHINE SULFATE 4 MG INJ IV PRN (21:17)
[2020-11-01] MEDS: Lactated Ringers 1,000 ML IV SCH (23:09)
[2020-11-01] MEDS: Pepcid 20 MG VIAL IV SCH (23:09)
[2020-11-02] MEDS: TYLENOL EXTRA STRENGTH 500 MG PO PRN ×3 (00:54→18:34)
[2020-11-02 06:13] LABS: Hematocrit 35.8 % (35-47); Hemoglobin 11.4 gm/dl (12.0-16.0); Mean Cell Volume 94.5 fl (78-100); Mean Corpuscular Hemoglobin 30.1 pg (26-32); Mean Corpuscular Hgb Concent. 31.8 g/dl (32-36); Platelet Count 156 K/mm3 (150-450); Red Blood Count 3.79 M/mm3 (4.1-5.4); Red Cell Distribution Width 12.5 % (11.5-14.0); White Blood Count 5.6 K/mm3 (4.0-10.5)
[2020-11-02 06:33] LABS: ANION GAP 9.8 MEQ/L (5-15); BLOOD UREA NITROGEN 10 mg/dL (7-17); CHLORIDE 101 mmol/L (98-107); Calcium 8.5 mg/dL (8.4-10.2); Carbon Dioxide 26 mmol/L (22-30); Creatinine 1 0.63 mg/dL (0.52-1.04); EST GLOMERULAR FILTRATION RATE > 60.0 ML/MIN; Glucose 95 mg/dL (74-106); Potassium 3.3 mmol/L (3.5-5.1); SODIUM 133 mmol/L (137-145)
--- NOTE | 2020-11-02 08:54 | XRAY ---
Indication: Follow-up Covid 19. Comparison: One day earlier. Portable chest demonstrates stable bilateral patchy airspace disease again without consolidation/effusion. Heart and mediastinal structures within normal limits. No new cardiopulmonary abnormalities.
--- NOTE | 2020-11-02 08:54 | XRAY ---
Indication: Weakness and cough. Positive Covid 19. Comparison: January 04, 2020. Portable chest demonstrates new subtle patchy airspace disease bilaterally without consolidation/large effusion. Stable borderline cardiomegaly. Bony thorax intact again with mild osteopenia and degenerative changes.
[2020-11-02] MEDS: Pepcid 20 MG VIAL IV SCH ×2 (09:45→21:49)
[2020-11-02] MEDS: ENOXAPARIN SODIUM SQ SCH (09:45)
[2020-11-02] MEDS ORDERED: NON-FORMULARY ITEM (Verapamil Hcl [Verapamil Er] 120 MG) PO SCH (10:00)
[2020-11-02] MEDS ORDERED: ISOPTIN S.R. 240 MG PO SCH (10:00)
[2020-11-02] MEDS ORDERED: NON-FORMULARY ITEM (Prenatal Vits W-Ca,Fe,Fa(<1mg) [Prenatal] 1 TAB) PO SCH (10:00)
[2020-11-02 10:29] LABS: BAND 1 % (0.0-2.0); Eosinophil 1 % (0.00-3.0); Lymphocytes 19 % (24-44); Monocyte 5 % (0.0-12.0); Neutrophils 74 % (36.0-66.0); Platelet Estimate NORMAL (NORMAL); Total Cells Counted 100
[2020-11-02] MEDS: ECOTRIN 81 MG PO SCH (10:53)
[2020-11-02] MEDS: FEOSOL 325 MG PO SCH (10:54)
[2020-11-02] MEDS: THERAGRAN MULTIVITAMIN PO SCH (10:54)
[2020-11-02] MEDS: Zofran 4 MG/2 ML VIAL IV PRN (16:01)
[2020-11-02] MEDS: Lactated Ringers 1,000 ML IV SCH (17:19)
[2020-11-03] MEDS: Lactated Ringers 1,000 ML IV SCH ×3 (01:06→21:44)
[2020-11-03] MEDS ORDERED: Cardizem IV 50 MG/10 ML IV ONE (03:45)
[2020-11-03] MEDS ORDERED: CARDIZEM DRIP 100 MG/100 ML D5W 100 ML IV PRN (03:46)
[2020-11-03] MEDS ORDERED: Sodium Chloride 0.9% 1000 ML 1,000 ML ONE (03:54)
[2020-11-03 06:56] LABS: Hematocrit 35.7 % (35-47); Hemoglobin 11.6 gm/dl (12.0-16.0); Mean Cell Volume 94.9 fl (78-100); Mean Corpuscular Hemoglobin 30.9 pg (26-32); Mean Corpuscular Hgb Concent. 32.5 g/dl (32-36); Mean Platelet Volume 10.5 fl (7.5-11.0); Platelet Count 195 K/mm3 (150-450); Red Blood Count 3.76 M/mm3 (4.1-5.4); Red Cell Distribution Width 12.5 % (11.5-14.0); White Blood Count 6.9 K/mm3 (4.0-10.5)
[2020-11-03 07:29] LABS: ANION GAP 13.6 MEQ/L (5-15); BLOOD UREA NITROGEN 8 mg/dL (7-17); CHLORIDE 106 mmol/L (98-107); Calcium 8.5 mg/dL (8.4-10.2); Carbon Dioxide 18 mmol/L (22-30); Creatinine 1 0.54 mg/dL (0.52-1.04); EST GLOMERULAR FILTRATION RATE > 60.0 ML/MIN; Glucose 78 mg/dL (74-106); MAGNESIUM 1.9 mg/dL (1.6-2.3); Potassium 3.2 mmol/L (3.5-5.1); SODIUM 134 mmol/L (137-145)
[2020-11-03 08:16] LABS: Eosinophil 1 % (0.00-3.0); Lymphocytes 20 % (24-44); Monocyte 3 % (0.0-12.0); Neutrophils 76 % (36.0-66.0); Platelet Estimate NORMAL (NORMAL); Total Cells Counted 100; Toxic Granulation 1+
[2020-11-03] MEDS: Pepcid 20 MG VIAL IV SCH ×2 (09:36→21:34)
[2020-11-03] MEDS: ECOTRIN 81 MG PO SCH (09:36)
[2020-11-03] MEDS: Zofran 4 MG/2 ML VIAL IV PRN (09:36)
[2020-11-03] MEDS: FEOSOL 325 MG PO SCH (09:36)
[2020-11-03] MEDS: ISOPTIN S.R. 240 MG PO SCH (09:36)
[2020-11-03] MEDS: ENOXAPARIN SODIUM SQ SCH (09:36)
[2020-11-03] MEDS: THERAGRAN MULTIVITAMIN PO SCH (09:36)
[2020-11-03] MEDS ORDERED: PHARMACY DOSING REQUEST MC ONE (09:58)
[2020-11-03] MEDS: Phenergan 25 MG INJ IV PRN (11:32)
[2020-11-03] MEDS: XARELTO 10 MG TABLET PO SCH (17:25)
[2020-11-04 05:45] LABS: Hematocrit 34.6 % (35-47); Hemoglobin 10.9 gm/dl (12.0-16.0); Mean Cell Volume 96.1 fl (78-100); Mean Corpuscular Hemoglobin 30.3 pg (26-32); Mean Corpuscular Hgb Concent. 31.5 g/dl (32-36); Mean Platelet Volume 10.5 fl (7.5-11.0); Platelet Count 215 K/mm3 (150-450); Red Cell Distribution Width 12.6 % (11.5-14.0); White Blood Count 6.5 K/mm3 (4.0-10.5)
[2020-11-04 06:00] LABS: ANION GAP 10.8 MEQ/L (5-15); BLOOD UREA NITROGEN 9 mg/dL (7-17); CHLORIDE 103 mmol/L (98-107); Calcium 8.7 mg/dL (8.4-10.2); Carbon Dioxide 22 mmol/L (22-30); Creatinine 1 0.61 mg/dL (0.52-1.04); EST GLOMERULAR FILTRATION RATE > 60.0 ML/MIN; Glucose 74 mg/dL (74-106); Potassium 3.4 mmol/L (3.5-5.1); SODIUM 133 mmol/L (137-145)
[2020-11-04] MEDS: Phenergan 25 MG INJ IV PRN (07:24)
--- NOTE | 2020-11-04 08:36 | HP ---
CHIEF COMPLAINT: Abdominal pain, headache. HISTORY OF PRESENT ILLNESS: The patient tested positive for COVID virus approximately six days before she came to the emergency room. She tested positive on 10/29/2020 and came into the emergency room on the evening of 11/01/2020. The chief complaint was body ache and low grade fever, unable to eat due to no appetite and some nausea, diarrhea every time she did eat and headache. She has history of pneumonia. Dr. Lepe, her personal physician, was working the emergency room and saw her. The pain was pretty bad in her head and getting worse. She has no history of stroke or migraines. Living with her who does not have COVID. MEDICATIONS: Aspirin 81 q.d., iron 325 q.d., vitamins, Verapamil Extended Release 120 q.d. ALLERGIES: NKDA. PAST MEDICAL HISTORY: Neurologic: None. ENT: None. Cardiac: Hypertension well controlled. Endocrine: Mild hypertension. Musculoskeletal: Osteoarthritis in the knees, back. GI: No history. : No problems urinating. Psych: No pertinent history: Female Reproductive: No history. Other problems: Just pain in the back. PAST SURGICAL HISTORY: Wrist surgery in the distant past. SOCIAL HISTORY: Nonsmoker. and lives with her who is healthy. PHYSICAL EXAMINATION: The patient is a small, healthy looking, alert, orientated woman this morning. She states that the headache is now gone after she was given oxygen overnight. O2 saturation is 96% on room air. GENERAL: As above, looks in no distress. HEENT: Pupils equal and reactive to light. NECK: Supple without adenopathy. CHEST: Clear. CVS: No murmurs or gallops. ABDOMEN: Soft. No tenderness. Normal bowel sounds. EXTREMITIES: Normal. IMPRESSION AND PLAN: The patient's temperature was 100.4F and it indeed came down with Tylenol. Her headache went away with oxygen. The nausea is much better. Her CBC is normal. Her D-dimer is 971. Sodium down to 130 by admission. She was treated with IV fluids, normal saline and oxygen for headaches and these things have markedly improved her. Blood pressure went up a little bit to 150/70. Temperature came down. Plan is to discharge her tomorrow if she continues to improve on her home medications. PROGNOSIS: Prognosis would be considered good as she would be on the seventh day of this disease.
[2020-11-04] MEDS: THERAGRAN MULTIVITAMIN PO SCH (09:14)
[2020-11-04] MEDS: FEOSOL 325 MG PO SCH (09:14)
[2020-11-04] MEDS: ISOPTIN S.R. 240 MG PO SCH (09:14)
[2020-11-04] MEDS: Pepcid 20 MG VIAL IV SCH (09:14)
[2020-11-04] MEDS: ECOTRIN 81 MG PO SCH (09:14)
[2020-11-04] MEDS: Lactated Ringers 1,000 ML IV SCH (09:14)
[2020-11-04] MEDS: ZOFRAN ODT 4 MG PO SCH ×2 (11:39→16:49)
[2020-11-04] MEDS: XARELTO 10 MG TABLET PO SCH (17:26)
[2020-11-04] MEDS ORDERED: Norco 10/325 MG Tablet PO PRN (20:15)
[2020-11-04] MEDS: Pepcid 20 MG PO SCH (21:47)
[2020-11-05] MEDS: ZOFRAN ODT 4 MG PO SCH ×2 (07:51→11:37)
[2020-11-05 08:23] VITALS: BP 157/78
[2020-11-05 08:32] VITALS: O2SAT 97
[2020-11-05] MEDS: ISOPTIN S.R. 240 MG PO SCH (09:18)
[2020-11-05] MEDS: FEOSOL 325 MG PO SCH (09:18)
[2020-11-05] MEDS: ECOTRIN 81 MG PO SCH (09:18)
[2020-11-05] MEDS: THERAGRAN MULTIVITAMIN PO SCH (09:19)
[2020-11-05] MEDS: Pepcid 20 MG PO SCH (09:20)
--- NOTE | 2020-11-05 09:49 | DS ---
ADMISSION DIAGNOSES: 1) COVID PNEUMONIA. 2) Intractable vomiting. 3) Headache. DISCHARGE DIAGNOSES: 1) COVID PNEUMONIA. 2) INTRACTABLE VOMITING. 3) HEADACHE. HOSPITAL COURSE: The patient is a delightful, small, alert and orientated 70 year old white female who had vomiting for several days, severe headache and came to the emergency room and was admitted. Her COVID test was positive. She required oxygen to stop the headache. The O2 saturations never got bad. Her chest x-ray showed some puffiness bilateral typical for COVID pneumonia. She was given IV fluids, Zofran, morphine, Xarelto as an anticoagulant. Because she looked so well and was not hypoxic she was not given any that I can see of steroids or Remdesivir. Her D-dimer on admission was 971. She was anticoagulated however it came down rather quickly. She looks good. Continue home medicines plus aspirin 81 q.d., prednisone 40 x3, 20 x4. Call if symptoms reoccur. Chances are good that she will return to health quickly. HOME MEDICATIONS: Aspirin 81 q.d., ferrous sulfate, vitamins, Verapamil 120 q.d. ALLERGIES: NKDA. PHYSICAL EXAMINATION: CHEST: Clear. CVS: Heart sounds regular. EXTREMITIES: No swelling.
[2020-11-05 11:34] VITALS: PULSE 67
== END 2020-11-05 11:49 | disposition home or self-care (01) | DRG 177 ==
LOC: ED 16:45 → MED SURG 20:59 → OBSVTOIN 11-02 09:30
PROVIDERS: ADMIT Family Medicine; ATTEND Family Medicine
DX: U07.1 COVID-19 (principal); J12.82 Pneumonia due to coronavirus disease 2019; R50.9 Fever, unspecified; R10.84 Generalized abdominal pain; R11.2 Nausea with vomiting, unspecified; R19.7 Diarrhea, unspecified; R51.9 Headache, unspecified; I10 Essential (primary) hypertension; M54.9 Dorsalgia, unspecified; R53.1 Weakness; Z79.899 Other long term (current) drug therapy
CPT/HCPCS: 36415; 71045; 80048; 80053; 83735; 84484; 85025; 85027; 85379; 93005; 93041; 93268; 94760; 94762; 96360; 99284; 99291; G0378; J1650; J2405; J2550; Q0162; A9270-GY

== ENCOUNTER 2023-08-11 11:45 | Emergency (ER) | payer MEDICARE, OTHER ==
--- NOTE | 2023-08-11 11:57 | ERPHSYRPT ---
- History of Present Illness Time Seen by Provider: 08/11/23 11:57 Source: patient Exam Limitations: no limitations Physician History: This is a 73-year-old white female patient of Dr. Adam and slate trimmer Dr. Herr and has a history of atrial fibrillation on verapamil and Xarelto. She presents with episode of dizziness and palpitations that began when she woke up at 4 AM and the dizziness resolved by 8 AM. However she was still feeling palpitations until she arrived to the emergency department. She denies chest pain. She denies shortness of breath. She has had no abdominal pain. She denies cough. She denies fever. She has not had any nausea vomiting or diarrhea symptoms. At the time of this examination by me, the patient's dizziness and palpitations have resolved. Timing/Duration: today Activities at Onset: none Quality: other Location: substernal, central Chest Pain Radiation: no radiation (Palpitations) Severity of Pain-Max: none Severity of Pain-Current: none Nitro Today/Relief: no nitro taken today Aspirin Treatment Today: no aspirin today Associated Symptoms: denies symptoms Prior Chest Pain/Cardiac Workup: cardiac cath Allergies/Adverse Reactions: No Known Drug Allergies Allergy (Verified 08/11/23 12:00) Home Medications: Aspirin EC 81 mg [Ecotrin 81 mg] 81 mg PO DAILY 01/04/20 [History] Vits W-Ca,Fe,FA(<1Mg) [] 1 tab PO DAILY 01/04/20 [History] Rivaroxaban 10 mg Tablet [Xarelto 10 mg Tablet] 2.5 mg PO DAILY 08/11/23 [History] Hx Tetanus, Diphtheria Vaccination/Date Given: No Hx Influenza Vaccination/Date Given: No Hx Pneumococcal Vaccination/Date Given: No Travel Risk - International Travel Have you traveled outside of the country in past 3 weeks: No - Coronavirus Screening Are you exhibiting any of the following symptoms?: No Close contact with a COVID-19 positive Pt in past 14-21 Days: No - Review of Systems Constitutional: No Symptoms Eyes: No Symptoms Ears, Nose, & Throat: No Symptoms Respiratory: No Symptoms Cardiac: Palpitations, No Chest Pain Abdominal/Gastrointestinal: No Symptoms Genitourinary Symptoms: No Symptoms Musculoskeletal: No Symptoms Skin: No Symptoms Neurological: No Symptoms Psychological: No Symptoms Endocrine: No Symptoms Hematologic/Lymphatic: No Symptoms Immunological/Allergic: No Symptoms All Other Systems: Reviewed and Negative - Past Medical History Pertinent Past Medical History: Yes Neurological History: No Pertinent History ENT History: No Pertinent History Cardiac History: Hypertension, Other Respiratory History: No Pertinent History Endocrine Medical History: No Pertinent History Musculoskeletal History: Osteoarthritis GI Medical History: No Pertinent History History: No Pertinent History Psycho-Social History: No Pertinent History Female Reproductive Disorders: No Pertinent History Other Medical History: DISC IN BACK PROBLEMS, anemia history - Past Surgical History Past Surgical History: Yes Neuro Surgical History: No Pertinent History Cardiac: No Pertinent History Respiratory: No Pertinent History Gastrointestinal: No Pertinent History Genitourinary: No Pertinent History Musculoskeletal: Joint Replacement Female Surgical History: No Pertinent History Other Surgical History: wrist surgery - Social History Smoking Status: Never smoker Exposure to second hand smoke: No Drug Use: none Patient Lives Alone: No - Nursing Vital Signs Nursing Vital Signs: Initial Vital Signs Temperature 97.2 F 08/11/23 11:59 Pulse Rate 93 H 08/11/23 11:59 Respiratory Rate 18 08/11/23 11:59 Blood Pressure 143/99 08/11/23 11:59 O2 Sat by Pulse Oximetry 99 08/11/23 11:59 Pain Scale Pain Intensity 0 - Physical Exam General Appearance: no apparent distress, alert, anxiety Eye Exam: PERRL/EOMI, eyes nml inspection Ears, Nose, Throat Exam: normal ENT inspection, moist mucous membranes Neck Exam: normal inspection, non-tender, supple, full range of motion Respiratory Exam: normal breath sounds, lungs clear, airway intact, No chest tenderness, No respiratory distress Cardiovascular Exam: regular rate/rhythm, normal heart sounds, normal peripheral pulses Gastrointestinal/Abdomen Exam: soft, normal bowel sounds, No tenderness Pelvic Exam: not done Rectal Exam: not done Back Exam: normal inspection, normal range of motion, No CVA tenderness, No vertebral tenderness Extremity Exam: normal inspection, normal range of motion, pelvis stable Neurologic Exam: alert, oriented x 3, cooperative, monotype machinist II-XII nml as tested, normal mood/affect, nml cerebellar function, nml station & gait, sensation nml Skin Exam: normal color, warm, dry Lymphatic Exam: No adenopathy SpO2 Interpretation: normal O2 Delivery: Room Air - Course Nursing assessment & vital signs reviewed: Yes EKG Interpreted by Me: RATE (96), Sinus Rhythm, NORMAL AXIS, NORMAL INTERVALS, NORMAL QRS, Non-specific ST Changes, Other (No acute ischemic changes on today's twelve-lead EKG.) Ordered Tests: Active Orders 24 hr Category Date Time Status EKG-ER Only STAT Care 08/11/23 12:23 Active IV Insertion STAT Care 08/11/23 12:23 Active HEAD WITHOUT CONTRAST [CT] Stat Exams 08/11/23 12:23 Taken CBC W DIFF Stat Lab 08/11/23 12:15 Completed CMP Stat Lab 08/11/23 12:15 Completed CULTURE,URINE Stat Lab 08/11/23 12:55 Received MAGNESIUM Stat Lab 08/11/23 12:15 Completed TROPONIN Q4H Lab 08/11/23 12:15 Completed TROPONIN Q4H Lab 08/11/23 16:30 Ordered TROPONIN Q4H Lab 08/11/23 20:30 Ordered UA W/RFX UR CULTURE Stat Lab 08/11/23 12:55 Completed Lab/Rad Data: Laboratory Result Diagrams 08/11/23 12:15 08/11/23 12:15 Laboratory Results 08/11/23 08/11/23 08/11/23 Range/Units 12:55 12:15 12:15 WBC (4.0-10.5) x10^3/uL RBC (4.1-5.4) x10^6/uL Hgb (12.0-16.0) g/dL Hct (35-47) % MCV (78-100) fL MCH (26-32) pg MCHC (32-36) g/dL RDW (11.5-14.0) % Plt Count (150-450) x10^3/uL MPV (7.5-11.0) fL Gran % (36.0-66.0) % Immature Gran % (Auto) (0.00-0.4) % Nucleat RBC Rel Count (0.00-0.1) % Eos # (Auto) (0-0.5) x10^3/uL Immature Gran # (Auto) (0.00-0.03) x10^3u/L Absolute Lymphs (auto) (1.0-4.6) x10^3/uL Absolute Monos (auto) (0.0-1.3) x10^3/uL Absolute Nucleated RBC (0.00-0.01) x10^3u/L Lymphocytes % (24.0-44.0) % Monocytes % (0.0-12.0) % Eosinophils % (0.00-5.0) % Basophils % (0.0-0.4) % Absolute Granulocytes (1.4-6.9) x10^3/uL Basophils # (0-0.4) x10^3/uL Sodium 136 L (137-145) mmol/L Potassium 4.1 (3.5-5.1) mmol/L Chloride 107 (98-107) mmol/L Carbon Dioxide 20 L (22-30) mmol/L Anion Gap 12.3 (5-15) MEQ/L BUN 22 H (7-17) mg/dL Creatinine 0.71 (0.52-1.04) mg/dL Estimated GFR > 60.0 ML/MIN Glucose 103 (74-106) mg/dL Calcium 9.3 (8.4-10.2) mg/dL Magnesium 2.2 (1.6-2.3) mg/dL Total Bilirubin 0.60 (0.2-1.3) mg/dL AST 27 (14-36) U/L ALT 17 (0-35) U/L Alkaline Phosphatase 106 (38-126) U/L Troponin I < 0.012 (0.000-0.034) ng/mL Serum Total Protein 7.3 (6.3-8.2) g/dL Albumin 4.2 (3.5-5.0) g/dL Urine Color Yellow (Yellow) Urine Appearance Clear (Clear) Urine pH 6.5 (4.6-8.0) Ur Specific [place] <=1.005 (1.005-1.030) Urine Protein Negative (Negative) Urine Glucose (UA) Negative (Negative) mg/dL Urine Ketones Negative (Negative) Urine Blood Small A (Negative) Urine Nitrite Negative (Negative) Urine Bilirubin Negative (Negative) Urine Urobilinogen 0.2 (0.2) mg/dL Ur Leukocyte Esterase Small A (Negative) U Hyaline Cast (Auto) NONE SEEN (0-2) /LPF Urine Microscopic RBC 3-5 (0-5) /HPF Urine Microscopic WBC 6-10 A (0-5) /HPF Ur Epithelial Cells Few (None Seen) /HPF Urine Bacteria None Seen (None Seen) /HPF Urine Culture Reflexed YES (NO) 08/11/23 Range/Units 12:15 WBC 8.9 (4.0-10.5) x10^3/uL RBC 4.10 (4.1-5.4) x10^6/uL Hgb 12.6 (12.0-16.0) g/dL Hct 39.2 (35-47) % MCV 95.6 (78-100) fL MCH 30.7 (26-32) pg MCHC 32.1 (32-36) g/dL RDW 12.7 (11.5-14.0) % Plt Count 276 (150-450) x10^3/uL MPV 9.5 (7.5-11.0) fL Gran % 63.0 (36.0-66.0) % Immature Gran % (Auto) 0.2 (0.00-0.4) % Nucleat RBC Rel Count 0.0 (0.00-0.1) % Eos # (Auto) 0.27 (0-0.5) x10^3/uL Immature Gran # (Auto) 0.02 (0.00-0.03) x10^3u/L Absolute Lymphs (auto) 2.46 (1.0-4.6) x10^3/uL Absolute Monos (auto) 0.48 (0.0-1.3) x10^3/uL Absolute Nucleated RBC 0.00 (0.00-0.01) x10^3u/L Lymphocytes % 27.8 (24.0-44.0) % Monocytes % 5.4 (0.0-12.0) % Eosinophils % 3.0 (0.00-5.0) % Basophils % 0.6 (0.0-0.4) % Absolute Granulocytes 5.58 (1.4-6.9) x10^3/uL Basophils # 0.05 (0-0.4) x10^3/uL Sodium (137-145) mmol/L Potassium (3.5-5.1) mmol/L Chloride (98-107) mmol/L Carbon Dioxide (22-30) mmol/L Anion Gap (5-15) MEQ/L BUN (7-17) mg/dL Creatinine (0.52-1.04) mg/dL Estimated GFR ML/MIN Glucose (74-106) mg/dL Calcium (8.4-10.2) mg/dL Magnesium (1.6-2.3) mg/dL Total Bilirubin (0.2-1.3) mg/dL AST (14-36) U/L ALT (0-35) U/L Alkaline Phosphatase (38-126) U/L Troponin I (0.000-0.034) ng/mL Serum Total Protein (6.3-8.2) g/dL Albumin (3.5-5.0) g/dL Urine Color (Yellow) Urine Appearance (Clear) Urine pH (4.6-8.0) Ur Specific [place] (1.005-1.030) Urine Protein (Negative) Urine Glucose (UA) (Negative) mg/dL Urine Ketones (Negative) Urine Blood (Negative) Urine Nitrite (Negative) Urine Bilirubin (Negative) Urine Urobilinogen (0.2) mg/dL Ur Leukocyte Esterase (Negative) U Hyaline Cast (Auto) (0-2) /LPF Urine Microscopic RBC (0-5) /HPF Urine Microscopic WBC (0-5) /HPF Ur Epithelial Cells (None Seen) /HPF Urine Bacteria (None Seen) /HPF Urine Culture Reflexed (NO) - Progress Progress: improved, re-examined Air Movement: good Progress Note: 08/11/23 13:17 This patient's medical issue is 1 of moderate complexity. The level of complexity in the work-up performed is based on review of the patient's past medical history, review of the patient's medication list, review of the patient's drug allergy list, history of present illness and physical findings on examination. The work-up in this patient includes placement of intravenous line, twelve-lead EKG, troponin level, CBC, CMP, urinalysis and CT scan of the head without contrast. 08/11/23 13:19 CT scan of the head without contrast was interpreted by the radiologist. This study was compared to the CT scan of the head without contrast dated 01/04/2020. 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 08/11/23 13:21 I interpreted the results of the laboratory work-up. Patient has a mild UTI. We will send a prescription to her pharmacy for Cipro 500 mg orally twice a day. Blood Culture(s) Obtained: No Counseled pt/family regarding: lab results, diagnosis, need for follow-up, rad results Medical Desision Making - Diagnostic Testing Diagnostic test were ordered, analyzed, and reviewed by me: Yes Radiological Interpretation: Reviewed by me, Teleradiologist Report - Risk of complications The pt has a mod risk of morbidity or mortality based on: Need for prescription drug management - Departure Departure Disposition: Home Clinical Impression: Dizziness, Palpitations, UTI (urinary tract infection) Condition: Stable Critical Care Time: No Referrals: GLADYS ADAM MD [Primary Care Provider] - Follow up/PCP as directed Additional Instructions: Drink plenty of fluids. Take your medications as prescribed. Take your antibiotics as prescribed. Call your slate trimmer office today to make arrangements for follow-up appointment for further evaluation management. Prescriptions: Ciprofloxacin [Cipro 500 MG] 500 mg PO BID #14 tablet
[2023-08-11 12:00] VITALS: TEMP 97.2
[2023-08-11 12:30] LABS: Absolute Neutrophil Ct (ANC) 5.58 x10^3/uL (1.4-6.9); BASOPHIL % 0.6 % (0.0-0.4); Basophil (Absolute #) 0.05 x10^3/uL (0-0.4); Eosinophil (Absolute #) 0.27 x10^3/uL (0-0.5); Hematocrit 39.2 % (35-47); Hemoglobin 12.6 g/dL (12.0-16.0); IMMATURE GRAN # 0.02 x10^3u/L (0.00-0.03); IMMATURE GRAN % 0.2 % (0.00-0.4); Lymphocyte (Absolute #) 2.46 x10^3/uL (1.0-4.6); Lymphocytes % 27.8 % (24.0-44.0); Mean Cell Volume 95.6 fL (78-100); Mean Corpuscular Hemoglobin 30.7 pg (26-32); Mean Corpuscular Hgb Concent. 32.1 g/dL (32-36); Mean Platelet Volume 9.5 fL (7.5-11.0); Monocyte (Absolute #) 0.48 x10^3/uL (0.0-1.3); Monocytes % 5.4 % (0.0-12.0); Platelet Count 276 x10^3/uL (150-450); Red Cell Distribution Width 12.7 % (11.5-14.0); White Blood Count 8.9 x10^3/uL (4.0-10.5)
[2023-08-11 12:45] LABS: ALBUMIN 4.2 g/dL (3.5-5.0); ALKALINE PHOSPHATASE 106 U/L (38-126); ANION GAP 12.3 MEQ/L (5-15); BLOOD UREA NITROGEN 22 mg/dL (7-17); CHLORIDE 107 mmol/L (98-107); Calcium 9.3 mg/dL (8.4-10.2); Carbon Dioxide 20 mmol/L (22-30); Creatinine 1 0.71 mg/dL (0.52-1.04); EST GLOMERULAR FILTRATION RATE > 60.0 ML/MIN; Glucose 103 mg/dL (74-106); MAGNESIUM 2.2 mg/dL (1.6-2.3); Potassium 4.1 mmol/L (3.5-5.1); SGOT/AST 27 U/L (14-36); SGPT/ALT 17 U/L (0-35); SODIUM 136 mmol/L (137-145); Total Protein 7.3 g/dL (6.3-8.2)
[2023-08-11 13:12] LABS: Appearance Clear (Clear); Bacteria None Seen /HPF (None Seen); Bilirubin Negative (Negative); Blood Small (Negative); Epithelial Cells Few /HPF (None Seen); Glucose, Urine Negative (Negative); Hyaline Casts NONE SEEN /LPF (0-2); Ketones Negative (Negative); Leukocyte Esterase Small (Negative); Nitrite Negative (Negative); Ph 6.5 (4.6-8.0); Protein,Urine Dip Negative (Negative); Specific Gravity <=1.005 (1.005-1.030); Urobilinogen 0.2 mg/dL (0.2)
[2023-08-11 13:13] LABS: ADD URINE CULTURE? YES (NO)
[2023-08-11 13:35] VITALS: BP 122/69; PULSE 84; RESP 16; O2SAT 97
--- NOTE | 2023-08-11 13:54 | XRAY ---
Indication: Dizziness. Multiple contiguous axial images obtained through the head without contrast. Comparison: January 04, 2020 Ventriculosulcal pattern appears symmetric. There is now remote lacunar infarct right basal ganglia and left external capsule. No acute intracranial hemorrhage, abnormal extra-axial fluid collection, or mass effect. Fourth ventricle is midline without hydrocephalus. Hester-white matter differentiation preserved bony calvarium intact. Visualized paranasal sinuses and mastoid air cells are clear. Impression: Remote lacunar infarcts as detailed. Remaining CT head without contrast exam is negative.
== END 2023-08-11 13:42 | disposition home or self-care (01) ==
LOC: ED 11:45
DX: N39.0 Urinary tract infection, site not specified (principal); R42 Dizziness and giddiness; R00.2 Palpitations; I10 Essential (primary) hypertension; Z79.01 Long term (current) use of anticoagulants; Z79.899 Other long term (current) drug therapy
CPT/HCPCS: 36000; 36415; 70450; 80053; 81001; 83735; 84484; 85025; 87086; 93005; 99284